=== PATIENT | female | born 1975 | race Hispanic/Latino ===

== ENCOUNTER → 2018-07-24 | Day surgery (SDC) | payer SELFPAY ==
[~2018-07-24] MED LIST: BIOSIL PO; FENTANYL CITRATE/PF 100MCG/2 ML INJ ONE; KETAMINE HCL INJ 50 MG/ML 10 ML VIAL ONE; MAGNESIUM/POTASSIUM PO; MIDAZOLAM HCL 5MG/ML 2ML VIAL ONE; PROPOFOL IV EMULSION 10 MG/ML 50 ML VIAL ONE
[2018-07-24 11:38] VITALS: BP 118/70
--- NOTE | 2018-07-24 15:20 | Operative Report ---
DATE OF PROCEDURE: 07/24/2018 SURGEON: Ramirez Zavala MD PROCEDURE: Esophagogastroduodenoscopy with biopsies and colonoscopy with polypectomy and biopsies. INDICATIONS FOR EGD: Upper abdominal pain, heartburn, bloating. INDICATIONS FOR COLONOSCOPY: Lower abdominal pain, bright red blood per rectum. MEDICATION: The patient was done under MAC, please see anesthesiologist's note. PROCEDURE IN DETAIL: With the patient in left lateral decubitus position, the flexible fiberoptic Olympus gastroscope was introduced into the esophagus under direct visualization without any difficulty. There was some patchy erythema noted in distal esophagus. The scope was then advanced with ease into the stomach. Mucosa overlying the antrum and the body revealed some diffuse erythema and [id number] edema and biopsies were obtained and sent to stain for H pylori. The pylorus was of normal contour and shape, it was intubated with ease and the scope was advanced all the way to the second portion of the duodenum. The scope was then withdrawn slowly and biopsies were obtained from the proximal second portion and the duodenal bulb to rule out sprue. The scope was then withdrawn back into the stomach and retroflexed and mucosa overlying the fundus and the cardia appeared to be within normal limits. The scope was then straightened out, it was subsequently withdrawn. The patient tolerated procedure well. IMPRESSION: 1. Distal esophagitis. 2. Gastritis, biopsied, biopsies sent to stain for H pylori. 3. Rule out sprue. PLAN: Follow up histology. Initiate Protonix 40 mg one p.o. q.a.m. a.c. PROCEDURE IN DETAIL: The patient was then turned around. After adequate lubrication of the anal canal, flexible fiberoptic Olympus colonoscope was inserted into the rectum with ease and advanced all the way to the cecum. The mucosa overlying the cecum appeared to be within normal limits. The ileocecal valve was intubated and the scope was advanced into the terminal ileum. Biopsies were obtained. The scope was then withdrawn back into the colon. It was then withdrawn slowly and mucosa overlying the ascending and the transverse as well as the descending appeared to be within normal limits. The distal descending and the sigmoid colon revealed some patchy mild inflammatory changes and biopsies were obtained. Diverticular disease was noted to involve the sigmoid colon. One polyp was snared from the proximal rectum. The scope was then retroflexed into the distal rectum and small internal hemorrhoids were noted, none of which was actively bleeding. The scope was then straightened out, it was subsequently withdrawn. The patient tolerated procedure well. IMPRESSION: 1. Diverticulosis. 2. Mild patchy left-sided colitis. 3. Rectal polyp, snared. 4. Internal hemorrhoids, none actively bleeding. PLAN: Follow up histology. Initiate VSL#3 one p.o. daily. The patient might benefit from a followup colonoscopy in 3 to 5 years. Ramirez Zavala MD [facility] [place] /[id number]
== END | disposition home or self-care (01) ==
LOC: OR 07:36
PROVIDERS: ATTEND Internal Medicine Gastroenterology
DX: K51.50 Left sided colitis without complications (principal); D12.8 Benign neoplasm of rectum; K29.50 Unspecified chronic gastritis without bleeding; K20.9 Esophagitis, unspecified; K59.09 Other constipation; K57.30 Diverticulosis of large intestine without perforation or abscess without bleeding; K64.8 Other hemorrhoids; Z68.31 Body mass index [BMI] 31.0-31.9, adult; Z85.41 Personal history of malignant neoplasm of cervix uteri
CPT/HCPCS: 43239; 45380; 45385; J2250; J2704; 45378; 45384

== ENCOUNTER 2024-11-09 19:18 | Emergency (ER) | payer OTHER ==
[~2024-11-09] VITALS: Ht 154.9 cm; Wt 71.2 kg
[~2024-11-09 19:18] MED LIST changes: -FENTANYL CITRATE/PF 100MCG/2 ML INJ ONE; -KETAMINE HCL INJ 50 MG/ML 10 ML VIAL ONE; -MIDAZOLAM HCL 5MG/ML 2ML VIAL ONE; -PROPOFOL IV EMULSION 10 MG/ML 50 ML VIAL ONE
[2024-11-09] MEDS ORDERED: CYCLOBENZAPRINE5 MG PO (20:36)
[2024-11-09] MEDS ORDERED: IBUPROFEN600 MG PO (20:37)
[2024-11-09 20:42] VITALS: PULSE 75; RESP 18; TEMP 97.6
[2024-11-09 20:48] VITALS: BP 125/77; PULSE 75; RESP 18; TEMP 97.6; O2SAT 98
== END 2024-11-09 20:50 | disposition home or self-care (01) ==
LOC: FSED 19:25
DX: R10.30 Lower abdominal pain, unspecified (principal); S39.011A Strain of muscle, fascia and tendon of abdomen, initial encounter; K57.90 Diverticulosis of intestine, part unspecified, without perforation or abscess without bleeding; N83.202 Unspecified ovarian cyst, left side; Z85.41 Personal history of malignant neoplasm of cervix uteri
CPT/HCPCS: 74176; 81003; 99284